=== PATIENT | male | born 1965 | race Caucasian/White ===

== ENCOUNTER 2023-08-07 18:35 | Emergency (ER) | payer OTHER, SELFPAY ==
--- NOTE | ~2023-08-07 | XR_ITS ---
EXAMINATION: XR knee LT 3V DATE: 08/07/2023 19:22 INDICATION: Left knee pain TECHNIQUE: Three views of the left knee were obtained. COMPARISON: None. FINDINGS: Alignment is normal. No fracture or osteochondral lesion. There is mild tricompartmental os teoarthritis characterized by tiny marginal osteophytes. No joint effusion/synovitis. Soft tissues a re unremarkable. IMPRESSION: 1. No acute osseous abnormality. Reviewed, dictated and finalized at location [facility]
[2023-08-07 19:34] VITALS: BP 162/93; PULSE 67; RESP 20; TEMP 36.3; O2SAT 98
[2023-08-07 20:54] VITALS: BP 148/96; PULSE 70; RESP 20; O2SAT 99
--- NOTE | 2023-08-07 21:18 | ED.GENADULT ---
HPI - General Adult General Chief complaint: Extremity Injury, Lower Stated complaint: hurt knee LT Time Seen by Provider: 08/07/23 20:41 Source: patient Mode of arrival: wheelchair Limitations: no limitations History of Present Illness HPI narrative: This is a 58-year-old male who presents to the ED for chief complaint of left knee injury that occurred this morning. Reports that while he was getting out of bed he felt his knee twist and pop causing immediate pain. Also reports swelling to the area. States he tried to go to work but was unable to finish his work day to the pain. Walking his cause significant pain along with bending the knee. Denies numbness, weakness or any further injury. Related Data Home Medications Medication Instructions Recorded Confirmed Prozac 08/07/23 dapagliflozin propanediol 5 mg mg 08/07/23 tablet (Farxiga) lisinopril 10 mg tablet mg 08/07/23 metformin 500 mg tablet mg 08/07/23 pioglitazone 15 mg tablet mg 08/07/23 Allergies Allergy/AdvReac Type Severity Reaction Status Date / Time morphine Allergy Muscle Pain Verified 08/07/23 19:38 Review of Systems Review of Systems: All systems as dictated in HPI Exam Narrative: GENERAL: Well-appearing, well-nourished, and in no acute distress. HEAD: Normocephalic, atraumatic. EYES: PERRLA and EOMI. ENT: Nares clear, no rhinorrhea or epistaxis. Mucous membranes moist. Oropharynx without tonsillar hypertrophy exudate or other lesions. NECK: Supple. No adenopathy or masses. CHEST: No respiratory distress. Clear to auscultation. No wheezes rales or rhonchi HEART: Regular rate and rhythm. No murmur heard. Normal peripheral pulses. ABDOMEN: Soft, nontender, nondistended, normal active bowel sounds. MSK: Mild left knee effusion. Moderate medial knee tenderness. No bruising, crepitus or warmth. Able to fully extend the knee. Able to bear weight. Normal range of motion. No edema. SKIN: Warm, dry, no rash. NEURO: Alert and oriented x3. No focal deficits. PSYCH: Normal mood and affect. Course Vital Signs Vital signs: Vital Signs Temperature 97.4 F L 08/07/23 19:34 Pulse Rate 67 08/07/23 19:34 Respiratory Rate 20 08/07/23 19:34 Blood Pressure 162/93 H 08/07/23 19:34 Pulse Oximetry 98 08/07/23 19:34 Temperature 97.4 F L 08/07/23 19:34 Pulse Rate 70 08/07/23 20:54 Respiratory Rate 20 08/07/23 20:54 Blood Pressure 148/96 H 08/07/23 20:54 Pulse Oximetry 99 08/07/23 20:54 Oxygen Delivery Room Air 08/07/23 20:54 Medical Decision Making MDM Narrative Medical decision making narrative: This is a 58-year-old male who presents to the ED with chief complaint of left knee injury while getting out of bed this morning. Reports a twisting injury and felt a pop. Complains of pain and swelling to the left knee. Vitals are normal. Exam remarkable for the above. No warmth or erythema to suggest inflammatory arthritis. Triage note mentions knee replacement but patient did not have a knee replacement. He had history of septic joint and washout. This was 4 years ago. X-ray today shows no acute osseous findings. Presentation is consistent with left knee derangement, potentially a ligamentous injury. He seeking pain relief. 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 He reports the pain is so bad that he would like a short course of oxycodone so to get him through to orthopedic appointment. Lengthy discussion regarding narcotic use with his history. He relays that he has sponsors and support system in place and feels comfortable with a short course today. He has tried [id number] pain meds with no relief. We discussed that I can only prescribe a very short course to get him through the weekend to see his doctor. Knee immobilizer given. pt will be discharged in stable condition. Return precautions given and supportive measures discussed. Pt is understanding and ag
[2023-08-07] MEDS: oxyCODONE HCL (*CRX) 5 MG TAB IR 10 MG PO (21:24)
--- NOTE | 2023-08-07 21:35 | PC.NURSE ---
Patient refused crutches, states knee immobilizer is okay, but I don't want crutches. ERP notified.
== END 2023-08-07 21:45 | disposition home or self-care (01) ==
LOC: ANHED 21:34
PROVIDERS: Emergency Provider Physician Assistant
DX: S89.92XA Unspecified injury of left lower leg, initial encounter (principal); X50.9XXA Other and unspecified overexertion or strenuous movements or postures, initial encounter
CPT/HCPCS: 73562; 99283; A9270